=== PATIENT | male | born 1995 | race African-American/Black ===

== ENCOUNTER 2017-06-26 16:26 | Emergency (ER) | payer BC ==
[2017-06-26 16:45] VITALS: BMI 35.9
[2017-06-26] MEDS ORDERED: SODIUM CHLORIDE 0.9% 1000 ML INFUS.BAG IV STA (17:03)
--- NOTE | 2017-06-26 17:03 | PDOC ---
History of Present Illness - General History Source: Patient Exam Limitations: No Limitations - History of Present Illness Initial Comments: 06/26/17 23:11 Patient is a 22 year old male with a significant past medical history of Bronchitis, Pneumonia who presents to the ED with complaints of increased fatigue that began earlier today. As per patient's mother, patient has been sick for 3 weeks but states he was fine until this morning. She reports patient has been experiencing right knee pain but states it is chronic for some time. Patient reports experiencing intermittent nausea and vomiting. He reports experiencing slight headache, fever and sore throat. Denies chest pain, SOB. Denies fever, chills. Denies contact with sick individuals, out of state travelling. Denies diarrhea, constipation. Denies any other symptoms. Allergies: None Social history: Lives alone. No smoking. No alcohol. No illicit drugs. Surgical history: None PMD: None <Fredis Montoya - Last Filed: 06/26/17 23:11> <Shira Pickens - Last Filed: 06/27/17 00:06> - General Chief Complaint: SIRS, Suspected/Possible Stated Complaint: FATIGUE Time Seen by Provider: 06/26/17 16:54 Past History <Fredis Montoya - Last Filed: 06/26/17 23:11> - Past Medical History COPD: No Other medical history: denies - Suicide/Smoking/Psychosocial Hx Smoking History: Never smoked Have you smoked in the past 12 months: No Information on smoking cessation initiated: No Hx Alcohol Use: No Drug/Substance Use Hx: No Substance Use Type: None Hx Substance Use Treatment: No <Shira Pickens - Last Filed: 06/27/17 00:06> - Past Medical History Allergies/Adverse Reactions: Allergies Allergy/AdvReac Type Severity Reaction Status Date / Time No Known Allergies Allergy Verified 07/01/14 14:48 Home Medications: Ambulatory Orders Ibuprofen [Motrin -] 600 mg PO TID PRN #21 tablet 06/26/17 Levofloxacin [Levaquin -] 500 mg PO DAILY #7 tablet 06/26/17 Review of Systems - Review of Systems Able to Perform ROS?: Yes Comments:: 06/26/17 23:11 CONSTITUTIONAL: Absent: fever, chills, diaphoresis, generalized weakness, malaise, loss of appetite HEENT: Absent: rhinorrhea, nasal congestion, throat pain, throat swelling, difficulty swallowing, mouth swelling, ear pain, eye pain, visual Changes CARDIOVASCULAR: Absent: chest pain, syncope, palpitations, irregular heart rate, lightheadedness , peripheral edema RESPIRATORY: Absent: cough, shortness of breath, dyspnea with exertion, orthopnea, wheezing, stridor, hemoptysis GASTROINTESTINAL: +abdominal pain. +Vomiting. Absent: abdominal distension, nausea, diarrhea, constipation, melena, hematochezia GENITOURINARY: Absent: dysuria, frequency, urgency, hesitancy, hematuria, flank pain, genital pain MUSCULOSKELETAL: +Right knee pain. Absent: myalgia, arthralgia, SKIN: Absent: rash, itching, pallor HEMATOLOGIC/IMMUNOLOGIC: Absent: easy bleeding, easy bruising, lymphadenopathy, frequent infections ENDOCRINE: Absent: unexplained weight gain, unexplained weight loss, heat intolerance, cold intolerance NEUROLOGIC: Absent: headache, focal weakness or paresthesias, dizziness, unsteady gait, seizure, mental status changes, bladder or bowel incontinence PSYCHIATRIC: Absent: anxiety, depression, suicidal or homicidal ideation, hallucinations. All Other Systems: Reviewed and Negative <Fredis Montoya - Last Filed: 06/26/17 23:11> *Physical Exam - Vital Signs Last Vital Signs Temp Pulse Resp BP Pulse Ox 101.5 F H 92 H 22 130/70 98 06/26/17 16:42 06/26/17 17:48 06/26/17 16:42 06/26/17 16:42 06/26/17 17:48 - Physical Exam Comments: 06/26/17 23:12 GENERAL: +Febrile Well developed, well nourished. Awake and alert. No acute distress. HEENT: +Dry mucous membrane. +Erythematous Oropharynx. Normocephalic, atraumatic. PERRLA, EOMI. No conjunctival pallor. Sclera are non- icteric.Oropharynx is clear. NECK: No neck pain. Supple. Full ROM. No JVD. Carotid pulses 2+ and symmetric, without bruits. No thyromegaly. No lymphadenopathy. CARDIOVASCULAR: +Tachycardic. Regular rate and rhythm. No murmurs, rubs, or gallops. Distal pulses are 2+ and symmetric. PULMONARY: No evidence of respiratory distress. Lungs clear to auscultation bilaterally. No wheezing, rales or rhonchi. ABDOMINAL: +Protuberant belly. Soft. Non-tender. Non-distended. No rebound or guarding. No organomegaly. Normoactive bowel sounds. MUSCULOSKELETAL Normal range of motion at all joints. No bony deformities or tenderness. No CVA tenderness. EXTREMITIES: No cyanosis. No clubbing. No edema. No calf tenderness. SKIN: Warm and dry. Normal capillary refill. No rashes. No jaundice. NEUROLOGICAL: Alert, awake, appropriate. Cranial nerves 2-12 intact. No deficits to light touch and temperature in face, upper extremities and lower extremities. No motor deficits in the in face, upper extremities and lower extremities. Normoreflexic in the upper and lower extremities. Normal speech. Toes are down-going bilaterally. Gait is normal without ataxia. PSYCHIATRIC: Cooperative. Good eye contact. Appropriate mood and affect. <Fredis Montoya - Last Filed: 06/26/17 23:11> - Vital Signs Last Vital Signs Temp Pulse Resp BP Pulse Ox 101.5 F H 101 H 22 130/70 100 06/26/17 16:42 06/26/17 16:42 06/26/17 16:42 06/26/17 16:42 06/26/17 16:42 <Shira Pickens - Last Filed: 06/27/17 00:06> ED Treatment Course - LABORATORY CBC & Chemistry Diagram: 06/26/17 17:23 06/26/17 17:30 - ADDITIONAL ORDERS Additional order review: Laboratory Results 06/26/17 06/26/17 06/26/17 22:00 17:30 17:30 PT with INR INR PTT (Actin FS) VBG pH 7.35 POC VBG pCO2 49.4 POC VBG pO2 24.0 L Mixed VBG HCO3 26.4 H Sodium 138 Potassium 3.8 Chloride 104 Carbon Dioxide 27 Anion Gap 7 L BUN 12 D Creatinine 1.0 D Creat Clearance w eGFR > 60 Random Glucose 84 Lactic Acid Calcium 8.1 L Total Bilirubin 0.4 D AST 13 L ALT 34 Alkaline Phosphatase 110 Total Protein 7.6 Albumin 4.1 Urine Color Ltyellow Urine Appearance Clear Urine pH 7.0 Ur Specific [place] 1.017 Urine Protein Negative Urine Glucose (UA) Negative Urine Ketones Negative Urine Blood Negative Urine Nitrite Negative Urine Bilirubin Negative Urine Urobilinogen Negative Ur Leukocyte Esterase 2+ H D Urine WBC (Auto) 40 Urine RBC (Auto) 3 Ur Epithelial Cells Rare Urine Mucus Rare 06/26/17 06/26/17 17:23 17:23 PT with INR 13.10 H INR 1.16 H PTT (Actin FS) 34.7 H VBG pH POC VBG pCO2 POC VBG pO2 Mixed VBG HCO3 Sodium Potassium Chloride Carbon Dioxide Anion Gap BUN Creatinine Creat Clearance w eGFR Random Glucose Lactic Acid 0.9 Calcium Total Bilirubin AST ALT Alkaline Phosphatase Total Protein Albumin Urine Color Urine Appearance Urine pH Ur Specific [place] Urine Protein Urine Glucose (UA) Urine Ketones Urine Blood Urine Nitrite Urine Bilirubin Urine Urobilinogen Ur Leukocyte Esterase Urine WBC (Auto) Urine RBC (Auto) Ur Epithelial Cells Urine Mucus 06/26/17 17:12 Group A Strep Rapid Antigen - Final Throat 06/26/17 17:23 Influenza Types A,B Antigen (HAYLEY) - Final Nasopharyngeal Swab - Final 06/26/17 17:23 RBC 4.62 MCV 86.2 MCHC 33.8 RDW 13.0 MPV 9.2 Neutrophils % 76.0 Lymphocytes % 12.8 D Monocytes % 10.8 H D Eosinophils % 0.1 Basophils % 0.3 - Medications Given in the ED: ED Medications Discontinued Medications Generic Name Dose Route Start Last Admin Trade Name Rudyq PRN Reason Stop Dose Admin Acetaminophen 1,000 mg 06/26/17 17:07 06/26/17 17:31 Ofirmev Injection - IVPB 06/26/17 17:08 1,000 mg ONCE ONE Administration Sodium Chloride 1,000 mls @ 1,000 mls/hr 06/26/17 20:24 06/26/17 22:01 Normal Saline - IV 06/26/17 21:23 1,000 mls/hr ASDIR STA Administration Ondansetron HCl 4 mg 06/26/17 17:06 06/26/17 17:31 Zofran Injection IVPUSH 06/26/17 17:07 4 mg ONCE ONE Administration Sodium Chloride 3,402 ml 06/26/17 17:03 06/26/17 17:30 Normal Saline - 30 ml/kg (3402 ml) 06/26/17 17:04 3,402 ml IV Administration ONCE STA <Fredis Montoya - Last Filed: 06/26/17 23:11> - LABORATORY CBC & Chemistry Diagram: 06/26/17 17:23 06/26/17 17:30 <Shira Pickens - Last Filed: 06/27/17 00:06> *DC/Admit/Observation/Transfer - Attestations Scribe Attestion: 06/26/17 23:12 Documentation prepared by Fredis Montoya, acting as medical videographer for Shira Pickens MD/DO. <Fredis Montoya - Last Filed: 06/26/17 23:11> <Shira Pickens - Last Filed: 06/27/17 00:06> Diagnosis at time of Disposition: UTI (lower urinary tract infection), Cough Fever Qualifiers: Fever type: due to other condition Qualified Code(s): R50.81 - Fever presenting with conditions classified elsewhere - Discharge Dispostion Disposition: HOME Condition at time of disposition: Stable - Prescriptions Prescriptions: Ibuprofen [Motrin -] 600 mg PO TID PRN #21 tablet PRN Reason: Pain Level 4 - 6 Levofloxacin [Levaquin -] 500 mg PO DAILY #7 tablet - Patient Instructions Printed Discharge Instructions: DI for Cough -- Adult, DI for Urinary Tract Infection (UTI), DI for Fever (Symptom) -- Adult - Post Discharge Activity Forms/Work/School Notes: Back to Work
[2017-06-26] MEDS ORDERED: ONDANSETRON 4 MG/2 ML VIAL IVPUSH ONE (17:06)
[2017-06-26] MEDS ORDERED: ACETAMINOPHEN 1000 MG/100 ML VIAL (NON FORMULARY) IVPB ONE (17:07)
[2017-06-26] MEDS ORDERED: ACETAMINOPHEN INJECTION 100 ML IVPB ONE (17:31)
[2017-06-26] MEDS ORDERED: ONDANSETRON 4 MG/2 ML VIAL ONE (17:32)
[2017-06-26 17:37] LABS: VENOUS PC02 49.4 mmHg (38-52); VENOUS PH 7.35 (7.32-7.42)
[2017-06-26 17:49] LABS: BASO % 0.3 % (0-2.0); EOS % 0.1 % (0-4.5); HEMATOCRIT 39.8 % (35.4-49); HEMOGLOBIN 13.5 GM/dL (11.7-16.9); LYMPH % 12.8 % (8-40); MCH 29.2 pg (25.7-33.7); MCHC 33.8 g/dl (32.0-35.9); MEAN CELL VOLUME 86.2 fl (80-96); MEAN PLT VOLUME 9.2 fl (7.5-11.1); MONO % 10.8 % (3.8-10.2); PLATELET COUNT 193 K/MM3 (134-434); RBC 4.62 M/mm3 (4.00-5.60); WHITE BLOOD COUNT 4.7 K/mm3 (4.0-10.0)
[2017-06-26 17:59] LABS: INR 1.16 (0.82-1.09); PROTHROMBIN TIME (PATIENT) 13.1 SEC (9.98-11.88)
[2017-06-26 18:01] LABS: ACTIVATED PTT 34.7 SECONDS (26.9-34.4)
[2017-06-26 18:24] LABS: ALBUMIN 4.1 g/dl (3.4-5.0); ANION GAP 7 (8-16); BILIRUBIN,TOTAL 0.4 mg/dL (0.2-1.0); BLOOD UREA NITROGEN 12 mg/dL (7-18); CALCIUM 8.1 mg/dL (8.5-10.1); CHLORIDE 104 mmol/L (98-107); CO2 27 mmol/L (21-32); GLUCOSE,RANDOM 84 mg/dL (74-106); POTASSIUM 3.8 mmol/L (3.5-5.1); SGOT/AST 13 U/L (15-37); SGPT/ALT 34 U/L (12-78); SODIUM 138 mmol/L (136-145); TOT PROT 7.6 g/dl (6.4-8.2)
[2017-06-26 18:25] LABS: ALK PHOS 110 U/L (45-117)
[2017-06-26] MEDS ORDERED: SODIUM CHLORIDE 1,000 ML IV STA (20:24)
[2017-06-26 22:10] LABS: URINE APPEARANCE CLEAR; URINE BILIRUBIN NEGATIVE (NEGATIVE); URINE BLOOD NEGATIVE (NEGATIVE); URINE COLOR LTYELLOW; URINE GLUCOSE (UA) NEGATIVE (NEGATIVE); URINE KETONE NEGATIVE (NEGATIVE); URINE NITRITE NEGATIVE (NEGATIVE); URINE PROTEIN NEGATIVE (NEGATIVE); URINE UROBILINOGEN NEGATIVE mg/dL (0.2-1.0)
[2017-06-26 22:17] LABS: EPI CELLS RARE /HPF (FEW); URINE LEUK ESTERASE 2+ (NEGATIVE); URINE MUCUS RARE
[2017-06-26] MEDS ORDERED: LEVOFLOXACIN 750 MG IVPB 750 MG/150 ML BAG IVPB ONE ×2 (22:40→22:58)
[2017-06-26] MEDS ORDERED: IBUPROFEN 400 MG TABLET (FP) PO ONE (23:42)
[2017-06-27] MEDS ORDERED: IBUPROFEN 400 MG TABLET (FP) PO ONE (00:11)
[2017-06-27 00:20] VITALS: BP 126/78; PULSE 89; TEMP 99
--- NOTE | 2017-06-28 08:06 | EKG ---
Test Reason : Blood Pressure : / mmHG Vent. Rate : 096 BPM Atrial Rate : 096 BPM P-R Int : 192 ms QRS Dur : 090 ms QT Int : 336 ms P-R-T Axes : 035 038 038 degrees QTc Int : 424 ms NORMAL SINUS RHYTHM NORMAL ECG WHEN COMPARED WITH ECG OF 01-JUL-2014 15:14, NO SIGNIFICANT CHANGE WAS FOUND Confirmed by JOSE MIGUEL DAVENPORT MD ([id number]) on 06/28/2017 8:06:27 AM Referred By: Confirmed By:JOSE MIGUEL DAVENPORT MD
== END 2017-06-27 00:20 | disposition home or self-care (01) ==
LOC: JER 16:26
DX: N39.0 Urinary tract infection, site not specified (principal); R05 Cough; M25.561 Pain in right knee
CPT/HCPCS: 36415; 71045-TC; 80053; 81003; 81015; 82803; 83605; 85025; 85610; 85730; 87040; 87070; 87077; 87086; 87430; 87804; 93005; 93010; 99285-25

== ENCOUNTER 2019-01-22 00:06 | Emergency (ER) | payer BC, OTHER ==
[2019-01-22 00:56] VITALS: TEMP 98; BMI 43.7
[2019-01-22] MEDS ORDERED: METOCLOPRAMIDE HCL INJECTION 10 MG/2 ML VIAL IVPB ONE (01:36)
[2019-01-22] MEDS ORDERED: SODIUM CHLORIDE 1,000 ML IV STA (01:36)
--- NOTE | 2019-01-22 01:36 | PDOC ---
History of Present Illness - General Chief Complaint: Migraine Headache Stated Complaint: MIGRAINE Time Seen by Provider: 01/22/19 01:13 History Source: Patient - History of Present Illness Initial Comments: 01/22/19 01:48 23-year-old male complaining of frontal headache for the last 3 days with photophobia. Denies nasal congestion, cough, fevers/chills, neck pain, neck stiffness. Denies nausea, vomiting, abdominal pain. Patient reports he sometimes gets headache "never this bad"denies trauma/injury. No past medical history 01/22/19 01:51 Timing/Duration: reports: constant Severity: Yes: moderate Associated Symptoms: denies: denies symptoms, confusion, fatigue, fever/chills, insomnia, loss of consciousness, muscle spasms, nausea/vomiting, numbness in legs/feet, paresthesia, ringing in ears, seizures, sleepy, slurred speech, tingling in legs/feet, trouble walking, vision changes, weakness, other Past History - Past Medical History Allergies/Adverse Reactions: Allergies Allergy/AdvReac Type Severity Reaction Status Date / Time No Known Allergies Allergy Verified 01/22/19 00:41 Home Medications: Ambulatory Orders Ibuprofen [Motrin -] 600 mg PO TID PRN #21 tablet 06/26/17 levoFLOXacin [Levaquin -] 500 mg PO DAILY #7 tablet 06/26/17 Fluticasone Prop 0.05% Nasal [Flonase -] 1 - 2 spray NS DAILY #1 spray.pump COPD: No - Suicide/Smoking/Psychosocial Hx Smoking History: Never smoked Have you smoked in the past 12 months: No Hx Alcohol Use: No Drug/Substance Use Hx: Yes (Marijuana) Substance Use Type: None Hx Substance Use Treatment: No Review of Systems - Review of Systems Able to Perform ROS?: Yes Is the patient limited Chinese proficient: No Constitutional: No: Symptoms Reported, See HPI, Chills, Diaphoresis, Fever, Loss of Appetite, Malaise, Night Sweats, Weakness, Weight Stable, Unintentional Wgt. Loss, Unexplained wgt Loss, Other HEENTM: Yes: Other (photophobia) ABD/GI: No: Symptoms Reported, See HPI, Abdominal Distended, Abd. Pain w/ defecation, Blood Streaked Bowels, Constipated, Diarrhea, Difficulty Swallowing , Nausea, Poor Appetite, Poor Fluid Intake, Rectal Bleeding, Vomiting, Indigestion, Abdominal cramping, Tarry Stools, Other Neurological: Yes: Headache *Physical Exam - Vital Signs Last Vital Signs Temp Pulse Resp BP Pulse Ox 98.0 F 73 18 124/71 97 01/22/19 00:06 01/22/19 00:06 01/22/19 00:06 01/22/19 00:06 01/22/19 00:06 - Physical Exam General Appearance: Yes: Appropriately Dressed HEENT: positive: Normal ENT Inspection. 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 Probable acute left maxillary sinusitis. Medical Decision Making - Medical Decision Making 01/22/19 04:09 headache improved *DC/Admit/Observation/Transfer Diagnosis at time of Disposition: Headache Qualifiers: Headache type: tension-type Headache chronicity pattern: acute headache Intractability: not intractable Qualified Code(s): G44.209 - Tension-type headache, unspecified, not intractable - Discharge Dispostion Disposition: HOME Condition at time of disposition: Fair - Prescriptions Prescriptions: Fluticasone Prop 0.05% Nasal [Flonase -] 1 - 2 spray NS DAILY #1 spray.pump - Referrals Referrals: Benson Car MD [Staff Physician] - - Patient Instructions Printed Discharge Instructions: DI for Sinus Headache Additional Instructions: Drink plenty of fluids. Take ibuprofen every 6 hours as needed for pain. Use Flonase as prescribed. Follow-up with your doctor /neurologist as soon as possible. - Post Discharge Activity Forms/Work/School Notes: Back to Work
--- NOTE | 2019-01-22 01:43 | PDOC ---
*Physical Exam - Vital Signs Last Vital Signs Temp Pulse Resp BP Pulse Ox 98.0 F 73 18 124/71 97 01/22/19 00:06 01/22/19 00:06 01/22/19 00:06 01/22/19 00:06 01/22/19 00:06 ED Treatment Course - LABORATORY CBC & Chemistry Diagram: 01/22/19 02:00 01/22/19 02:00 Medical Decision Making - Medical Decision Making 01/22/19 01:43 Patient seen by the advanced practice provider under my direct supervision. Ancillary testing reviewed as necessary. I agree with plan as outlined by the advanced practice provider. *DC/Admit/Observation/Transfer Diagnosis at time of Disposition: Headache Qualifiers: Headache type: tension-type Headache chronicity pattern: acute headache Intractability: not intractable Qualified Code(s): G44.209 - Tension-type headache, unspecified, not intractable - Discharge Dispostion Condition at time of disposition: Fair - Referrals - Patient Instructions - Post Discharge Activity
[2019-01-22 02:20] LABS: BASO % 0.8 % (0-2.0); EOS % 0.6 % (0-4.5); HEMATOCRIT 39.7 % (35.4-49); HEMOGLOBIN 13.6 GM/dL (11.7-16.9); LYMPH % 43.3 % (8-40); MCH 29.5 pg (25.7-33.7); MCHC 34.1 g/dl (32.0-35.9); MEAN CELL VOLUME 86.3 fl (80-96); MEAN PLT VOLUME 8.7 fl (7.5-11.1); MONO % 7.2 % (3.8-10.2); NEUT % 48.1 % (42.8-82.8); PLATELET COUNT 191 K/MM3 (134-434); RDW 13.1 % (11.9-15.9); WHITE BLOOD COUNT 6.3 K/mm3 (4.0-10.0)
[2019-01-22] MEDS ORDERED: METOCLOPRAMIDE HCL INJECTION 10 MG/2 ML VIAL ONE (02:30)
[2019-01-22 02:46] LABS: BILIRUBIN,TOTAL 0.3 mg/dL (0.2-1); BLOOD UREA NITROGEN 14.4 mg/dL (7-18); CALCIUM 8.9 mg/dL (8.5-10.1); POTASSIUM 3.7 mmol/L (3.5-5.1); TOT PROT 7.5 g/dl (6.4-8.2)
[2019-01-22] MEDS ORDERED: KETOROLAC TROMETHAMINE 30 MG/1 ML VIAL IVPUSH ONE (04:09)
[2019-01-22] MEDS ORDERED: KETOROLAC TROMETHAMINE 30 MG/1 ML VIAL ONE (04:13)
[2019-01-22 05:22] VITALS: BP 126/73; PULSE 68
== END 2019-01-22 04:50 | disposition home or self-care (01) ==
LOC: JER 00:06
PROC: 3E033GC Introduction of Other Therapeutic Substance into Peripheral Vein, Percutaneous Approach (ICD-10-PCS; principal; 2019-01-22)
PROC: 3E0333Z Introduction of Anti-inflammatory into Peripheral Vein, Percutaneous Approach (ICD-10-PCS; 2019-01-22)
PROC: 3E0337Z Introduction of Electrolytic and Water Balance Substance into Peripheral Vein, Percutaneous Approach (ICD-10-PCS; 2019-01-22)
DX: G44.209 Tension-type headache, unspecified, not intractable (principal)
CPT/HCPCS: 36415; 70450-TC; 80053; 85025; 96361; 96374; 96375; 99283-25; J7030